=== PATIENT | female | born 1960 | race Caucasian/White ===

== ENCOUNTER 2021-05-20 09:10 | Outpatient (CLI) | payer BC, SELFPAY ==
--- NOTE | 2021-05-20 08:45 | DI.RAD_ITS ---
Exam(s) XR STANDING ALIGNMENT XR KNEE RT 1V EXAM: XR STANDING ALIGNMENT and XR knee RT 1 V CLINICAL HISTORY: right knee pain. TECHNIQUE: 2D digital imaging was performed. COMPARISON: CR ORTHO KNEE RIGHT 1 OR 2 VIEWS from 01/22/2019 CR ORTHO KNEE RIGHT 4+VIEWS from 06/30/2020 CR XR KNEE RT 1V from 05/20/2021 FINDINGS: BONES: No acute fracture is present. No bony destructive lesion is seen. Tricompartment degenerative changes are seen in the right knee. The findings are most marked in the lateral femoral tibial joint . There is joint space narrowing subchondral sclerosis and periarticular spurring present. There is a small right knee joint effusion. In the left knee, there are mild degenerative changes noted with joint space narrowing and periarticular spurring present. The ankle joints are well maintained. SOFT TISSUE: Normal. IMPRESSION: Osteoarthritis of the knees, right greater than left. DATA REPOSITORY: RADIATION DOSE DELIVERED:
== END 2021-05-20 09:11 | disposition home or self-care (01) ==
LOC: DIORS 09:10
PROVIDERS: PCP Internal Medicine; Referring Provider Internal Medicine; Visit Provider Physician Assistant
DX: M25.561 Pain in right knee (principal); M17.11 Unilateral primary osteoarthritis, right knee; M25.461 Effusion, right knee
CPT/HCPCS: 73560; 77073

== ENCOUNTER 2021-07-25 02:32 | Outpatient (CLI) | payer BC, SELFPAY ==
[2021-07-25 09:06] LABS: HCT 42.2 % (36.0-46.0); HGB 13.4 g/dL (11.2-15.7); MCH 29.4 pg (27.0-33.0); MCHC 31.8 % (32.0-36.0); MCV 92.5 fL (80-95); MPV 9.6 fL (8.0-11.0); Platelet Count 343 10^3/uL (130-400); RBC 4.56 10^6/uL (3.93-5.22); RDW 12.4 % (11.7-14.6); RDW-SD 42.5 fL; WBC 9.43 10^3/uL (4.4-10.8)
[2021-07-25 09:40] LABS: BUN 18 mg/dL (7-18); CREATININE 0.7 mg/dL (0.55-1.02); Calcium 9.5 mg/dL (8.5-10.1); Chloride 104 mmol/L (98-107); Glucose 93 mg/dL (74-106); Potassium 4.6 mmol/L (3.5-5.1); Sodium 140 mmol/L (136-145)
[2021-07-25 12:12] LABS: Source Nasal/Nares
[2021-07-25 17:27] LABS: COVID-19 PCR Negative (Negative)
== END 2021-07-25 02:33 | disposition home or self-care (01) ==
LOC: LBO 02:33
PROVIDERS: Physician Assistant Surgical; PCP Internal Medicine; Visit Provider Student in an Organized Health Care Education/Training Program
DX: M25.561 Pain in right knee (principal); M17.11 Unilateral primary osteoarthritis, right knee; Z20.822 Contact with and (suspected) exposure to COVID-19; Z01.818 Encounter for other preprocedural examination; Z01.812 Encounter for preprocedural laboratory examination
CPT/HCPCS: 36415; 80048; 85027; 87635

== ENCOUNTER 2021-07-25 02:48 | Outpatient (CLI) | payer BC, SELFPAY | END 2021-07-25 02:49 | disposition home or self-care (01) | LOC: LBO 02:48 | PROVIDERS: PCP Internal Medicine; Visit Provider Student in an Organized Health Care Education/Training Program ==

== ENCOUNTER 2021-07-27 06:15 | Day surgery (SDC) | payer BC, SELFPAY ==
[2021-07-27] VITALS (9 sets, daily range): BP systolic 77–129; BP diastolic 50–97; PULSE 56–78; RESP 10–17; TEMP 36.1–36.9; O2SAT 94–100; BMI 38.7
[2021-07-27] MEDS: Acetaminophen 500 MG TAB 1000 MG PO (06:33)
[2021-07-27] MEDS: Celecoxib 200 MG CAP 400 MG PO (06:34)
--- NOTE | 2021-07-27 06:43 | W.PM.DSUDISC ---
Discharge Plan Disposition Patient Disposition: HOME Condition: Stable Discharge Details Reason For Visit: Left TKA Attending Provider: Shane Everett Primary Care Provider: Patricia Gore Home Meds and New Rx's Prescriptions: New acetaminophen 500 mg capsule 1,000 mg PO Q8H PRN PRNQty: 90 0RF aspirin 81 mg tablet,delayed release (DR/EC) 81 mg PO BID Qty: 60 0RF celecoxib [Celebrex] 200 mg capsule 200 mg PO BID Qty: 60 0RF oxycodone 5 mg tablet 5 mg PO Q4H PRNQty: 18 0RF Continued loratadine [Allergy Relief (loratadine)] 10 mg tablet 10 mg PO DAILY 0RF calcium citrate-vitamin D3 200 mg-3.125 mcg (125 unit) tablet 3 tab PO DAILY 0RF cyclobenzaprine 5 mg tablet 5 mg PO BID PRN0RF diphenoxylate-atropine 2.5-0.025 mg tablet 1 tab PO TID PRN0RF epinephrine 0.3 mg/0.3 mL auto-injector 0.3 mg IM ONCE 0RF Rx Instructions: as a single dose; may repeat once fluticasone propionate 50 mcg/actuation spray,suspension 2 spray intranasal DAILY 0RF Rx Instructions: administer into each nostril gabapentin 100 mg capsule 200 mg PO BID 0RF hydroxyzine HCl 10 mg tablet 10 mg PO QHS 0RF furosemide [Lasix] 20 mg tablet 20 mg PO DAILY 0RF levothyroxine 200 mcg capsule 200 mcg PO DAILY 0RF lisinopril 10 mg tablet 10 mg PO DAILY 0RF omeprazole 20 mg capsule,delayed release(DR/EC) 20 mg PO DAILY 0RF cyclobenzaprine 10 mg Tablet 10 mg PO BID PRN0RF Label Comments: pt only takes 5 mg BID cyanocobalamin (vitamin B-12) [Vitamin B-12] 500 mcg Tablet 500 mcg PO DAILY 0RF multivitamin Tablet,Chewable 1 tab PO BID 0RF cholecalciferol (vitamin D3) [Vitamin D3] 25 mcg (1,000 unit) Tablet 3,000 unit PO DAILY 0RF Discontinued ibuprofen 800 mg tablet 800 mg PO TID PRN0RF acetaminophen [Tylenol Arthritis Pain] 650 mg tablet extended release 1,300 mg PO DAILY 0RF Discharge Instructions Additional Instructions: Total Knee Discharge Instructions Activity: The most important activity is to walk. You should try to take short walks a few times a day. It is important that when resting you work on keeping the knee straight. Avoid putting a pillow behind the knee as this will encourage flexion. Work on range of motion exercises as provided by Physical Therapy. - Start outpatient physical therapy within 2 weeks. - You should wear the TAM hose on both legs for 2 weeks. You may remove these at night. You may also use any compression sock in place of the TAM hose. - Utilize [employer] to review exercises, see videos on exercises and obtain basic information pertaining to your surgery and your recovery. Dressing: Remove the Joshua wrap by 2 days after your surgery and put on the TAM stocking given to you from the hospital. Keep the surgical dressing (underneath the JOSHUA wrap) in place for at least one week. After the first week it may be removed and replaced with light gauze and tape or nothing. The wound and dressing may get wet after 3 days but avoid soaking the dressing or otherwise it will need to be changed. Many people prefer covering the dressing with cling wrap (saran wrap) to minimize it from getting soaked. If it gets wet, just pat dry. If it starts to peel off then it will need to be changed. Medications: - You should take Tylenol 1000mg and anti-inflammatory Celebrex as your primary pain control medications. If the Celebrex is too expensive or not covered, please call the office for another alternative (Advil/Ibuprofen or Naproxen/Aleve) - You have been prescribed a stronger pain medication Oxycodone for breakthrough pain, take as needed as prescribed. - You may continue with your previously prescribed stomach acid reduction agent Omeprazole to help reduce stomach acid and reflux. - You continue with your previously prescribed Gabapentin to take at night for restlessness and nerve pain. - You will be taking Aspirin 81mg twice a day for DVT prevention unless instructed otherwise. - If you have constipation you should take Colace or Miralax (both [id number]). It takes most people 3-4 days to have a bowel movement. Follow-up: 2 weeks If you have any acute concerns or questions, please do not hesitate to contact the office at [phone]. You may contact Dr. Everett with any questions after hours through the hospital at [phone] or on his cell phone at [phone]. Referrals: Shane Everett MD [ [facility] ST[facility]FF PHYSICIAN] - Equipment/Supplies: Walker Activity:: Activity as Tolerated Remove Dressings/Wound Care:: Do Not Remove Shower/Bathe:: 72 hours Diet:: As Tolerated Discharge Orders Discharge Orders: Discharge Order (Routine); Ordered 07/27/21 Ordered By: Kareen Fraire DS: Diagnosis Discharge Diagnosis (1) Left knee DJD: Status: Acute
[2021-07-27] MEDS: Lactated Ringers 1,000 ML 80 ML IV (06:55)
--- NOTE | 2021-07-27 07:00 | ANES.PREOP_ITS ---
General Info Date of Service Date Performed: 07/27/21 Height: 5 ft 7 in Weight: 112 kg Body Mass Index (BMI): 38.7 Surgical Procedure: Operation Date: 07/27/21 07:40 Proposed Procedure Side Surgeon p Knee Total Arthroplasty w/OrthoAlign Right hSane Everett MD Meds Allergies and Home Medications Allergies Allergy/AdvReac Type Severity Reaction Status Date / Time adhesive tape Allergy Intermediate Verified 07/27/21 06:11 amoxicillin Allergy Intermediate Skin Rash Unverified 07/27/21 06:11 ampicillin Allergy Intermediate Skin Rash Unverified 07/27/21 06:11 Penicillins Allergy Intermediate rash Verified 07/27/21 06:11 citric acid Allergy Verified 07/27/21 06:11 pineapple Allergy Verified 07/27/21 06:11 wool Allergy Verified 07/27/21 06:11 Home Medication Medication Instructions Recorded calcium citrate 200 mg 3 tab PO DAILY tab 05/20/21 calcium-vitamin D3 3.125 mcg (125 unit) tablet cyclobenzaprine 5 mg tablet 5 mg PO BID PRN tab 05/20/21 diphenoxylate-atropine 2.5 1 tab PO TID PRN 05/20/21 mg-0.025 mg tablet epinephrine 0.3 mg/0.3 mL 0.3 mg IM ONCE 05/20/21 injection, auto-injector fluticasone propionate 50 2 spray INTRANASAL DAILY 05/20/21 mcg/actuation nasal spray,suspension furosemide 20 mg tablet (Lasix) 20 mg PO DAILY 05/20/21 gabapentin 100 mg capsule 200 mg PO BID cap 05/20/21 hydroxyzine HCl 10 mg tablet 10 mg PO QHS 05/20/21 levothyroxine 200 mcg capsule 200 mcg PO DAILY 05/20/21 lisinopril 10 mg tablet 10 mg PO DAILY 05/20/21 loratadine 10 mg tablet (Allergy 10 mg PO DAILY 05/20/21 Relief (loratadine)) omeprazole 20 mg capsule,delayed 20 mg PO DAILY 05/20/21 release cholecalciferol (vitamin D3) 25 3,000 unit PO DAILY 07/25/21 mcg (1,000 unit) tablet (Vitamin D3) cyanocobalamin (vitamin B-12) 500 500 mcg PO DAILY 07/25/21 mcg tablet (Vitamin B-12) cyclobenzaprine 10 mg tablet 10 mg PO BID PRN 07/25/21 multivitamin 1 tab PO BID 07/25/21 acetaminophen 500 mg capsule 1,000 mg PO Q8H PRN PRN #90 cap 07/27/21 aspirin 81 mg tablet,delayed 81 mg PO BID #60 tab 07/27/21 release celecoxib 200 mg capsule (Celebrex) 200 mg PO BID #60 cap 07/27/21 oxycodone 5 mg tablet 5 mg PO Q4H PRN #18 tab 07/27/21 Current Visit Medications: Current Medications Generic Name Dose Route Start Last Admin Trade Name Freq PRN Reason Stop Dose Admin Acetaminophen 1,000 mg 07/27/21 06:00 07/27/21 06:33 Acetaminophen 500 Mg Tab PO 1,000 mg PREOP EDWARD Administration Acetaminophen 1,000 mg 07/27/21 08:30 Acetaminophen 500 Mg Tab PO TID EDWARD Aspirin 81 mg 07/27/21 08:30 Aspirin E.C. 81 Mg Tabec PO BID EDWARD Celecoxib 400 mg 07/27/21 06:00 07/27/21 06:34 Celecoxib 200 Mg Cap PO 400 mg PREOP EDWARD Administration Celecoxib 200 mg 07/27/21 08:30 Celecoxib 200 Mg Cap PO BID EDWARD Bupivacaine HCl 25 ml/ 0 ml 07/27/21 07:30 Ketorolac Tromethamine 15 mg/ IJ 08/01/21 07:29 Sodium Chloride 24.5 ml DIRECTED COUNT INCLUDES THE [facility] Docusate Sodium 100 mg 07/27/21 06:40 Docusate Sodium 100 Mg Cap PO BID PRN PRN Constipation Gabapentin 300 mg 07/27/21 06:00 Gabapentin 300 Mg Cap PO PREOP EDWARD Gabapentin 300 mg 07/27/21 22:00 Gabapentin 300 Mg Cap PO HS COUNT INCLUDES THE [facility] Hydromorphone HCl 0.5 mg 07/27/21 06:40 Hydromorphone 2 Mg/Ml Vial IVP Q2H PRN PRN Tranexamic Acid 1,000 mg/ 60 mls @ 360 mls/hr 07/27/21 06:00 Sodium Chloride IVPB PREOP COUNT INCLUDES THE [facility] Tranexamic Acid 1,000 mg/ 60 mls @ 360 mls/hr 07/27/21 06:00 Sodium Chloride IVPB DIRECTED COUNT INCLUDES THE [facility] Ringer's Solution 1,000 mls @ 80 mls/hr 07/27/21 06:00 IV 08/25/21 23:59 INFUSION EDWARD Cefazolin Sodium/Dextrose 2 gm in 50 mls @ 100 mls/hr 07/27/21 06:00 Ancef Duplex IVPB 08/25/21 23:59 PREOP EDWARD Cefazolin Sodium/Dextrose 1 gm in 50 mls @ 100 mls/hr 07/27/21 16:00 Ancef Duplex IVPB 07/28/21 08:29 Q8H EDWARD IV Miscellaneous Supplies 1 each 07/27/21 06:00 Iv Access IV 08/25/21 23:59 DIRECTED EDWARD Ondansetron HCl 4 mg 07/27/21 06:40 Ondansetron 4 Mg/2 Ml Vial IVP Q6H PRN PRN Nausea Oxycodone HCl 0 mg 07/27/21 06:40 Oxycodone 5 Mg Tab PO Q3H PRN PRN Pain Pantoprazole Sodium 40 mg 07/27/21 07:30 Pantoprazole 40 Mg Tabcr PO DAILY@0730 EDWARD Sodium Chloride 0 ml 07/27/21 06:00 Normal Saline Flush 10 Ml Syr IV 08/25/21 23:59 PRN PRN Sodium Chloride 0 ml 07/27/21 06:00 Normal Saline 10 Ml Vial IJ 08/25/21 23:59 DIRECTED PRN Sterile Water 0 ml 07/27/21 06:00 Water,Injection,Sterile 10 Ml Vial IJ 08/25/21 23:59 DIRECTED PRN PFSH Active Problems Active Problems: Problem Status Onset Code Adjustment disorder with anxious mood F43.22 Internal derangement of right knee M23.91 COPD (chronic obstructive pulmonary disease) J44.9 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 GERD (gastroesophageal reflux disease) K21.9 Barretts esophagus K22.70 Atopic dermatitis L20.9 Low back pain M54.50 Hypertensive disorder I10 Hypothyroidism E03.9 Mild intermittent asthma J45.20 Eczema L30.9 Hyperlipidemia E78.5 Allergic rhinitis J30.9 Hypersomnia G47.10 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 states an unknown anesthesia medication causes her face to become beat red well coming out of anesthesia (tubal ligation surgery-[place] 2000). Pt. states that she tells anesthesia to have benedryl ready, stated it happened at [facility] but doesn not remember which procedu re or when. Pt. states she thinks it was for a colonoscopy Surgical History Surgical History (Updated 07/27/21 @ 06:18 by Ale Osullivan) History of bariatric surgery 03/28/18 Hx of colonoscopy Status post arthroscopy of right knee (03/28/19) Dr. Ortiz Tobacco Smoking/Tobacco Use Status: Former Tobacco Use Alcohol Alcohol Intake: current Alcohol intake frequency: holidays/special occasions only Alcohol type: hard liquor Substance Use Substance use: Never Substance use type: does not use Details: alcohol: t-7 Vital Signs and Lab Results Vital Signs Most Recent Vital Signs in EMR: Most Recent Vital Signs Temp Pulse Resp BP Pulse Ox 36.4 C L 78 14 118/97 H 99 07/27/21 06:36 07/27/21 06:36 07/27/21 06:36 07/27/21 06:36 07/27/21 06:36 Lab Results Blood Type / Crossmatch: No Data to Display Complete Blood Count: White Blood Count 9.43 10^3/uL (4.4-10.8) 07/25/21 08:40 07/25/21 Red Blood Count 4.56 10^6/uL (3.93-5.22) 07/25/21 08:40 07/25/21 Hemoglobin 13.4 g/dL (11.2-15.7) 07/25/21 08:40 07/25/21 Hematocrit 42.2 % (36.0-46.0) 07/25/21 08:40 07/25/21 Platelet Count 343 10^3/uL (130-400) 07/25/21 08:40 07/25/21 Complete Metabolic Panel: Sodium Level 140 mmol/L (136-145) 07/25/21 08:40 07/25/21 Potassium Level 4.6 mmol/L (3.5-5.1) 07/25/21 08:40 07/25/21 Chloride Level 104 mmol/L (98-107) 07/25/21 08:40 07/25/21 Carbon Dioxide Level 31.0 mmol/L (21.0-32.0) 07/25/21 08:40 07/25/21 Blood Urea Nitrogen 18 mg/dL (7-18) 07/25/21 08:40 07/25/21 Creatinine 0.7 mg/dL (0.55-1.02) 07/25/21 08:40 07/25/21 Estimated GFR/1.73 m2 >= 60.00 (mL/min/1.73m2) 07/25/21 08:40 07/25/21 Calcium Level 9.5 mg/dL (8.5-10.1) 07/25/21 08:40 07/25/21 Glucose Level 93 mg/dL (74-106) 07/25/21 08:40 07/25/21 Liver Function Panel: No Data to Display Coagulation Panel: No Data to Display Cardiac Panel: No Data to Display Arterial Blood Gas: No Data to Display Venous Blood Gas: No Data to Display Pancreas Panel: No Data to Display Thyroid Panel: No Data to Display Infectious Disease: Coronavirus (COVID-19)(PCR) Negative (Negative) 07/25/21 08:42 07/25/21 Coronavirus 2019 Source Nasal/Nares 07/25/21 08:42 07/25/21 Blood Cultures: No Data to Display Toxicology Panel: No Data to Display Anesthesia Assessment and Plan Anesthesia History Personal History: Other (Red face from unknown anesthesia med) Family History: No Family History of Anesthesia Complications Exercise Tolerance Exercise Tolerance: Metabolic Equivalents>4 Pertinent Negatives Pertinent Negatives: No Symptoms of GERD (Scott's esophagus ), No Major Cardiovascular Symptoms or Complaints, No Major Pulmonary Symptoms or Complaints (Quit smoking 2010) and No History of CVA/TIA Cardiac & Pulmonary Exam Cardiac Exam: Normal S1/S2 Heart Sounds Pulmonary Exam: Clear Bilateral Breath Sounds Implantable Cardiac Device Does patient have a Pacemaker or an ICD?: No Airway Exam Known Difficult Airway: No Mallampati Class: 2 Mouth Opening: Normal (> 3cm) Thyromental Distance: Greater than 3 cm Neck Range of Motion: Full ROM Neck Circumference: Normal Teeth Condition: Generalized Poor Dentition and Removable Dentures/Plates Upper ASA Classification ASA Score: ASA 3 Emergency Case?: No NPO Status NPO Status: NPO Clears >2 hours, Solids >8 hours Anesthesia Plan Resuscitation Status: Full Code Anesthesia Technique: Spinal Anesthesia Airway Planned: Natural Airway Monitors Used: Standard Monitors
[2021-07-27] MEDS: ceFAZolin 2 GM/50 ML BAG IVPB (07:28)
--- NOTE | 2021-07-27 08:08 | W.ANESNERVE ---
Nerve Block Single Injection Procedure Date and Time Date Performed: 07/27/21 Procedure Start: 08:09 Location Where Procedure Performed Procedure Location: Day Surgery Unit Reason Performed: Postoperative Analgesia Requesting Provider: Shane Everett Timeout Performed Timeout Performed: Yes Monitoring Used ECG, Blood Pressure and SpO2 Sterility Sterility: Hand Hygiene, Surgical Cap, Surgical Mask, Sterile Gloves, Eye Protection and Chlorhexidine Sedation Given During Procedure Sedation Given (Indicate Dose Given): No Sedation given Patient Mental Status Patient Mental Status: Awake Nerve Block 1st Nerve Block: Laterality: Right Block Type: Adductor Canal Needle / Catheter Used: 100mm SonoPlex II Local Anesthetic Bolus (Indicate Dose Given): Lidocaine used for local infiltration of skin, Injected in 3-5ml increments after negative blood aspiration and Bupivacaine 0.25% Dose:: 15 cc Additives (Indicate Dose Given): None Ultrasound: Sterile probe cover and gel used Ultrasound Image Saved?: Yes Nerve Stimulator: Not Used Paresthesia: None Procedure Tolerated: No Complications and Patient tolerated well Procedure Outcome: Successful Performed By: Valentino El
[2021-07-27] MEDS: oxyCODONE 5 MG TAB PO (10:22)
--- NOTE | 2021-07-27 10:59 | PT.INIE ---
Date of service: 07/27/21 Time of Service: 10:59 PT Notes Visit Reasons: Left TKA Physical Therapy Day Surgery Initial Evaluation Date: 07/27/2021 Referring Doctor: GUERLINE Manzanares PT Orders: PT CONSULT: S/P surgery Precautions: WBAT on left LE with AD. Patient Profile/Admitting Diagnosis: Irena is a 60-year-old female with degenerative joint disease of the left knee and is status post left total knee arthroplasty on postoperative day 0. PMHX: Surgical History? History of bariatric surgery 03/28/18tatus post arthroscopy of right knee (03/28/19) Dr. Ortiz Social History/Home Situation: Lives with significant other in a mobile home with 3 steps to enter without rails. Works as an alcohol and drug counselor. Independent with all aspects of ADLs prior to surgery. Independent with all aspects of ADLs prior to surgery. Equipment Owned/DME: None Subjective: Agreeable to PT consult. Reports 4/10 pain in the left knee at rest and with movement. States that previously her knee would really hurt when with weight bearing and would be highly unstable when it starts to twist. Today she reports that her left knee feels very stable and has minimal pain. Objective: General Observation: Supine in bed. Joshua wraps to left LE. Cryocuff to left knee. TEDS on right leg Mental Status: Alert and oriented x4 Pain: 4/10 in the right knee at rest and with weightbearing ROM: Right Lower Extremity: Hip flexion WFL. Hip abduction WFL. Knee flexion WFL. Ankle dorsiflexion WFL. Ankle plantarflexion WFL. Left Lower Extremity: Hip flexion WFL. Hip abduction WFL. Knee flexion 10 degrees to 100 degrees. Knee extension -10 degrees. Ankle dorsiflexion WFL. Ankle plantarflexion WFL. Strength: Right Lower Extremity: Hip flexors 5/5. Hip abductors 5/5. Knee flexors 5/5. Knee extensors 5/5. Ankle dorsiflexors 5/5. Ankle plantarflexors 5/5. Left Lower Extremity:Hip flexors 4/5. Hip abductors 4/5. Knee flexors 3-/5. Knee extensors 3-/5. Ankle dorsiflexors 5/5. Ankle plantarflexors 5/5. Sensation: Intact as to pain and light pressure in bilateral lower extremities. Bed Mobility/Transfers: Supine to sit standby assist Sit to stand contact-guard assist Stand to sit standby assist Bed to chair standby assist THERA EX: SLR x10, seated hip flexion x 5, LAQ's x 5, ankle DF PF x 5, quadriceps sets x5, glutes sets x 5 Gait: Completed 150 feet of level surface ambulation using front-wheeled walker with contact-guard assist, step through gait pattern. Denies headache, chest pain, and dizziness throughout activity. Stairs: Up and down 6 x 4-inch steps and 4 x 2-inch steps while holding onto 1 rail for support with step to gait pattern requiring contact-guard assist. Balance: Static Sitting: Normal Dynamic Sitting: Normal Static Standing: Fair Dynamic Standing: Fair Special Tests: Mobility Limitations Standardized Measure [facility] AM-PAC 6 clicks Basic Mobility Inpatient Short Form: Raw Score: 22 CMS Score: 21% deficit Informed Consent/Education: Patient and significant other Wale were instructed in purpose of PT consult. Education and training on initial set of exercises that can be done at home have been completed with patient in reference to [employer] josue. Assessment: Irena requires the use of a front wheel walker for all mobility ADL performance in order to maximize independence and reduce fall risk. Good quadriceps activation allowed for safe ambulation performance. Patient presents with clinical signs and symptoms consistent with current/admitting diagnoses that have resulted to mobility limitations, gait instability, generalized weakness, and impairment of motor control as demonstrated by the following impairment level findings: 1. Decreased strength to left knee major muscle groups 2. Impaired standing balance 3. Limitation of joint range of motion in left knee Impairments are contributing to the following functional limitations: 1. Inability to safely ambulate without assistive device 2. Increase completion time for mobility ADL performance 3. Increased fall risk Patient is assessed as a 28943 moderate complexity based on the following: History: 60-year-old male with impairment level findings, functional limitations, and past medical history as indicated above Examination: Demonstrable impairment in strength, balance, and mobility level with underlying impairments and functional limitations as documented above Presentation: [employer] moderate complexity Goals: N/A. PT evaluation and 1-2 treatment sessions only for functional mobility training using recommended AD and for HEP instruction. Plan of Care/Treatment Plan: N/A. PT evaluation and 1-2 treatment session only for functional mobility training using recommended AD and for HEP instruction. DISCHARGE RECOMMENDATIONS: [] Home with no services [] [] Home with services [specify] [X] Home with outpatient PT. Home when medically cleared by orthopedic surgeon. Will highly from outpatient PT services in order to return to full occasional activities and independent community ambulation without an assistive device. [] SNF for continued rehabilitation [] [] [facility] [] [] SNF versus LTC based on ability to participate and progress [] TREATMENT CODE/TIME: 94474 x 20 minutes, 20792 x 13 minutes beginning at 10:59 AM. Thank you for the opportunity to participate in the care of this patient. Cynthia Porter PT, DPT, CLT [facility] [place], [place]
--- NOTE | 2021-07-27 14:50 | W.ANESPOSTOP ---
Postoperative Evaluation Date, Time and Location Date Performed: 07/27/21 Time Performed: 12:52 Patient Location: Day Surgery Unit Vital Signs Most Recent Imported Vital Signs: Most Recent Vital Signs Temp Pulse Resp BP Pulse Ox 36.1 C L 77 14 116/68 98 07/27/21 10:55 07/27/21 10:55 07/27/21 10:55 07/27/21 10:55 07/27/21 10:55 Pain Score Most Recent Pain Score: Most Recent Pain Score Pain Level [Right Knee] 3 07/27/21 10:55 Pain Level 4 07/27/21 10:55 Assessment Mental Status: Awake (Alert & Oriented to Patient Baseline) Airway and Respiratory Function: Patent airway with normal (patient baseline) respiratory exam Cardiovascular Function: Hemodynamically Stable Hydration Status: Adequately Hydrated Nausea & Vomiting: No Nausea or Vomiting Pain: Pt. Denies Any Pain Peripheral Nerve Block: Regional nerve block not resolved at time of post operative discharge
--- NOTE | 2021-07-27 15:59 | W.PM.OP ---
Date of service: 07/27/21 Time of Service: 08:50 Operative Note Operative Note DATE OF PROCEDURE: 07/27/21 PRE-OP DIAGNOSIS: Right Knee Osteoarthritis with Valgus Deformity POST-OP DIAGNOSIS: same PROCEDURE: Right Total Knee Replacement with Intraoperative Navigation SURGEON: Shane Everett AUTO FLEET MANAGER: Kareen Fraire ANESTHESIA TYPE: Spinal Refer to Anesthesia Record ESTIMATED BLOOD LOSS: 150 PATHOLOGY: none sent COMPLICATIONS: None Patient was transported to: PACU Patient's condition: stable Implants: 1. Depuy Attune Cementless Cruciate Retaining Femoral Component, Size 5 2. Depuy Attune Cementless Rotating Platform Tibial Component, Size 3 3. Depuy Attune 5x7mm CR/RP Poly 4. Depuy Attune Patellar Component, Size 35 Indications: I have seen Irena in clinic for symptoms of RIGHT knee arthritis, confirmed with radiographic findings. She has exhausted nonoperative methods and was having significant limitations in daily function and desired better function and less pain. I discussed the technical details of a knee replacement. I explained the risks of the procedure to include, but not limited to, bleeding, infection, pain, stiffness, fracture, damage to nerves and vessels, damage to muscles and tendons, loosening, need for repeat procedure, blood clot and cardiopulmonary demise. Despite these risks, Irena elected to proceed. Findings: There was significant signs of arthritis throughout the knee involving all 3 compartments with a primary valgus deformity. Procedure Description: Irena was greeted in the preoperative holding area where the correct side was identified and marked. The consent was reviewed with the patient and signed. The history and physical was updated. All questions were answered. Preoperative mediacations were administered: Acetaminophen 1000mg, Celebrex 400mg, and Gabapentin 300mg. An adductor canal block was then administered by the anesthesia team in the PACU. Irena was taken back to the operating room. A spinal anesthestic was then administered. The patient was placed into the supine position on the operating room table. A nonsterile tourniquet was placed high onto the leg. Posts were placed for positioning during the procedure. All bony prominences were well padded. Prophylactic antibiotics in the form of Cefazolin were administered. 1g of Tranxemic Acid was given intravenously within 30 minutes of incision. The right leg was then prepped with Chloraprep and draped in a standard fashion with impervious stockinette. A second prep with Chloraprep was performed prior to application of Iodine impregnated skin protection. A timeout to confirm correct identity, side and site, procedure, allergies, anesthesia, and medical concerns was performed. With the knee in some flexion, a midline incision was made overlying the knee. Full thickness skin flaps were raised once the extensor mechanism was encountered. These were raised medially and laterally. Any bleeding was controlled with electrocautery. Once the extensor mechanism was fully exposed, a medial parapatellar arthrotomy was performed in a flexed position. All bleeding from the arthrotomy and the geniculate arteries was coagulated. A medial subperiosteal peel was performed with electrocautery to the midcoronal plane. The fat pad was removed while keeping the patellar tendon protected. The anterior distal femur synovium was removed for later visualization. The ACL and PCL were resected and the anterior horn of the lateral meniscus was transected. The knee was then flexed with the patella everted. Large osteophytes from the tibia were removed. Large osteophytes from the femur were removed. A single starting pin was then placed 1cm anterior to the PCL insertion and the notch in the direction of the femoral head. The OrthoAlign device was applied over the pin. It was oriented to be in line with the epicondylar axis and the trochlear groove. It was then pinned into place. The navigation computer was then turned on and calibrated. The distal femur cut was set at 0 degrees varus/valgus and 2.5 degrees flexion. The distal femur cutting guide then was positioned for a 9mm cut. The distal femur was cut with an oscillating saw while protecting the soft tissues. The tibia was then addressed. The OrthoAlign device was placed over the tibial tubercle and medial tibia and secured into position. Once again, OrthoAlign was calibrated and then set for a 0 degree varus/valgus cut and 5 degrees of posterior slope. With this locked into position, the cut thickness stylus was used to assess cut thickness. The lateral side, most involved side, was set for a 5mm cut. This was then held in position and pinned into place with 2 additional pins and a cross pin for stability. The medial and lateral collateral ligaments were protected and the cut was performed. With this completed, it was assessed and noted to be of appropriate dimensions. The guide and OrthoAlign was removed. A spacer block was inserted and the knee was brought into extension. The 7mm spacer block provided full extension, without hyperextension and with stability of both the medial and lateral collateral ligaments was assessed. The pins from the femur and the tibia were then removed. The distal femur was then sized. The anterior stylus was placed onto the lateral ridge of the anterior femur. This indicated a size 5 femur. The external rotation of the guide was adjusted to 3 degrees to match the epicondylar axis, perpendicular to Hatfield?s line. The 4-in-1 cutting guide was the placed. The posterior medial femur cut was evaluated and appeared of good thickness. The spacer block was inserted underneath the cutting guide and stability was confirmed in 90 degrees of flexion. An meng wing was used to confirm appropriate position of the anterior cut to avoid notching. This cutting guide was ensured to be flush on the cut surface and then pinned into place with headed pins. While protecting the soft tissues, quad tendon, and collateral ligaments, the anterior and posterior cuts were performed with a saw. The central two pins were removed and the posterior and anterior chamfers were cut next. The notch-cutting guide was placed. This was pinned to lateralize the femoral component as much as possible while keeping it flush on the cut surface. This was then pinned into position. A reciprocating saw was used to make the notch cut. A rasp smoothed the cut surfaces. The medial and lateral menisci were removed. A trial femoral component was then inserted, impacted down to the cut surfaces, and the lug holes were drilled. A provisional trial tibial component was placed and the knee was brought through range of motion. There was noted to be excellent extension and flexion. There was no significant instability. The patella was tracking without thumbs. A size 7mm polyethylene component provided the best range of motion and stability with less than 2mm gapping with medial and lateral stress and full extension without significant hyperextension. The tibial cut surface was fully exposed. The tibia was then sized as a 3. The tibia had been previously marked during trialing to correspond to the center of the tibial component to help with rotation. The trial was aligned to this opal, approximately rotated to the medial 1/3rd of the tibial tubercle. The trial was pinned into place. The tibia was prepared with a reamer and a keel punch and lug holes. The knee was then brought into extension and the patella was measured as 22mm. Using the patellar clamp and cut guide, this was resected to a flat surface with at least 13mm of thickness remaining. The size 35 patella fit the best. This was oriented and then clamped into position. The lugs were drilled. The trial components were removed. The final components were opened on the back table. The periosteal and capsular tissues, especially posteriorly, around the knee were then systematically injected with a periarticular cocktail consisting of 50cc 0.25% Marcaine, 30mg Ketorolac, 20cc of Exparal and 50cc of injectable saline. The knee was thoroughly irrigated with a pulse lavage and dried. Irrisept was also used to irrigate the tissues. On the back table, with the implants opened, the cement was mixed. One batch of high viscosity cement was prepared with vacuum assistance. After the cement was ready a small amount was placed on the cut surface of the patella and the patellar button was clamped into position and held. While the cement was hardening, the cementless knee components were placed. Starting with the tibial component, the tibia was subluxed anteriorly and the lug holes of the component were lined up. The tibia was then impacted with an impactor and mallet until the tibial component was in contact with the tibia. The final polyethylene component was inserted. Then, the femoral component was inserted. The lug holes were aligned and the component was impacted into position. The knee was irrigated with Surgiphor betadine solution. This was allowed to sit in the knee for 3 minutes and then it was thoroughly irrigated with saline. After the cement had finally cured, approximately 15min, the clamp was removed from the patella and the knee was taken through range of motion. The patella was tracking with a no-thumbs technique. The capsule was then reapproximated with a No. 1 Vicryl at multiple locations. The capsule was finally closed with a No. 2 Stratafix, barbed suture. Deep tissues were then reapproximated with 0 Vicryl and 2-0 Vicryl. The skin was closed with a running 3-0 Monocryl in a subcuticular fashion. This was reinforced with skin glue. A Mepilex silver dressing was applied along with a [id number] STEPHENIE wrap. A CryoCuff was applied. Irena was transferred to the hospital bed without difficulty an suffering no apparent complication. She has a good prognosis. Physical therapy will start today and without restrictions, weight-bearing as tolerated. Aspirin 81mg BID will be used for DVT prophylaxis.
== END 2021-07-27 12:08 | disposition home or self-care (01) ==
LOC: SUR 12:40
PROVIDERS: PCP Internal Medicine; Visit Provider Student in an Organized Health Care Education/Training Program
PROC: (CPT 27447; principal; 2021-07-27 07:30)
DX: M17.11 Unilateral primary osteoarthritis, right knee (principal); J44.9 Chronic obstructive pulmonary disease, unspecified; I10 Essential (primary) hypertension; G47.33 Obstructive sleep apnea (adult) (pediatric)
CPT/HCPCS: 27447; 20985; 76942; 97162; 97530; J0690; J1885; J2001; J2250; J3010

== ENCOUNTER 2021-08-12 09:56 | Outpatient (CLI) | payer BC, SELFPAY ==
--- NOTE | 2021-08-12 09:30 | DI.RAD_ITS ---
Exam(s) XR KNEE RT 1V EXAM: XR KNEE RT 1V CLINICAL HISTORY: 1ST POST OP R TKA. TECHNIQUE: 2D digital imaging was performed. COMPARISON: CR XR KNEE RT 1V from 05/20/2021 FINDINGS: Single lateral view Components of the recently placed right knee prosthesis appears satisfactory position alignment on th is single lateral view. There has also been patellar resurfacing. IMPRESSION: DATA REPOSITORY: RADIATION DOSE DELIVERED:
--- NOTE | 2021-08-12 09:30 | DI.RAD_ITS ---
Exam(s) XR STANDING ALIGNMENT EXAM: XR STANDING ALIGNMENT CLINICAL HISTORY: 1ST POST OP R TKA. TECHNIQUE: 2D digital imaging was performed. COMPARISON: CR XR STANDING ALIGNMENT from 05/20/2021 FINDINGS: Total of four views Been interval placement of a right knee prosthesis. Components appear to be satisfactory position li ne. No obvious loosening. Moderate narrowing of both medial lateral joint spaces of the opposite-le ft knee again noted. Hips appear unremarkable as do the ankles. There are no osseous lesions. Sacr oiliac joints appear unremarkable. IMPRESSION: DATA REPOSITORY: RADIATION DOSE DELIVERED:
== END 2021-08-12 09:57 | disposition home or self-care (01) ==
LOC: DIORS 09:56
PROVIDERS: PCP Internal Medicine; Referring Provider Internal Medicine; Visit Provider Student in an Organized Health Care Education/Training Program
DX: Z96.651 Presence of right artificial knee joint (principal); Z47.1 Aftercare following joint replacement surgery
CPT/HCPCS: 73560; 77073

== ENCOUNTER 2022-08-11 09:41 | Outpatient (CLI) | payer BC, SELFPAY ==
--- NOTE | 2022-08-11 09:03 | DI.RAD_ITS ---
Exam(s) XR KNEE RT 2V AP,LAT EXAM: XR KNEE RT 2V AP,LAT CLINICAL HISTORY: annual f/u R TKA. TECHNIQUE: 2D digital imaging was performed. COMPARISON: CR XR KNEE RT 1V from 08/12/2021 FINDINGS: Two views: Stable position alignment of the components of the prosthesis. No fracture or loosening evident. IMPRESSION: Satisfactory stable appearance. DATA REPOSITORY: RADIATION DOSE DELIVERED:
== END 2022-08-11 09:42 | disposition home or self-care (01) ==
LOC: DIORS 09:41
PROVIDERS: PCP Internal Medicine; Referring Provider Internal Medicine; Visit Provider Student in an Organized Health Care Education/Training Program
DX: Z96.651 Presence of right artificial knee joint (principal)
CPT/HCPCS: 73560